=== PATIENT | male | born 2000 ===

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

== ENCOUNTER 2018-02-03 20:12 | Emergency (ER) | payer MEDICAID, OTHER ==
[2018-02-03 20:13] VITALS: BMI 20.7
[2018-02-03] MEDS ORDERED: Bismuth Subsalicylate 262 mg Chew Tab PO STA (21:04)
[2018-02-03 21:31] LABS: BASO # 0.1 K/uL (0.0-0.2); BASO % 1.4 % (0.0-2.0); EOS # 0.5 K/uL (0.0-0.7); EOS % 8.2 % (0.0-4.0); HEMOGLOBIN 14.6 g/dL (12.0-18.0); LYMPH # 1.5 K/uL (1.0-4.3); LYMPH % 25.2 % (20.0-40.0); MEAN CELL VOLUME 90.4 fL (80.0-94.0); MEAN CORPUSCULAR HEMOGLOBIN 30.1 pg (27.0-31.0); MEAN CORPUSCULAR HGB CONC 33.3 g/dL (33.0-37.0); MEAN PLATELET VOLUME 9.3 fL (7.2-11.7); MONO # 0.6 K/uL (0.0-0.8); MONO % 11.1 % (0.0-10.0); NEUT # 3.1 K/uL (1.8-7.0); NEUT % 54.1 % (50.0-75.0); NRBC % 0.1 % (0.0-2.0); RBC 4.83 Mil/uL (4.40-5.90); RED CELL DISTRIBUTION WIDTH 13.2 % (11.5-14.5); WHITE BLOOD COUNT 5.8 K/uL (4.8-10.8)
[2018-02-03 21:47] LABS: URINE BILIRUBIN NEGATIVE (NEGATIVE); URINE BLOOD NEGATIVE (NEGATIVE); URINE CLARITY Clear (Clear); URINE COLOR Yellow (YELLOW); URINE GLUCOSE (UA) NORMAL (Normal); URINE LEUKOCYTE ESTERASE NEG Leu/uL (Negative); URINE PROTEIN NEGATIVE (NEGATIVE); URINE UROBILINOGEN NORMAL mg/dL (0.2-1.0)
--- NOTE | 2018-02-03 21:54 | C.PDOC ---
History Of Present Illness 18 y/o male presents to the ED with complaints of left lower quadrant abdominal pain since Thursday. Associated with some vomiting, which resolved today, as well as diarrhea, of which he had 3 episodes today. Past surgical history is significant for appendectomy. Patient states he has been taking some unknown medicine for the stomach. Denies fever, uri symptoms, dysuria, testicular pain , or back pain. Time Seen by Provider: 02/03/18 20:46 Chief Complaint (Nursing): Abdominal Pain History Per: Patient History/Exam Limitations: no limitations Onset/Duration Of Symptoms: Days (x3) Current Symptoms Are (Timing): Still Present Location Of Pain/Discomfort: LLQ Past Medical History Reviewed: Historical Data, Nursing Documentation, Vital Signs Vital Signs: Last Vital Signs Temp 97.8 F 02/03/18 23:01 Pulse 67 02/03/18 23:01 Resp 14 02/03/18 23:01 BP 109/63 02/03/18 23:01 Pulse Ox 98 02/03/18 23:17 Surgical History: Appendectomy - [facility] Procedures LAPAROSCOP APPENDECTOMY (06/07/14) Family History: States: Unknown Family Hx - Social History Hx Tobacco Use: No Hx Alcohol Use: No Hx Substance Use: No - Immunization History Hx Tetanus Toxoid Vaccination: No Hx Influenza Vaccination: No Hx Pneumococcal Vaccination: No Review Of Systems Constitutional: Negative for: Fever, Chills Gastrointestinal: Positive for: Vomiting, Abdominal Pain, Diarrhea Physical Exam - Physical Exam Appears: Non-toxic, No Acute Distress Skin: Normal Color, Warm, Dry Head: Atraumatic, Normacephalic Eye(s): bilateral: Normal Inspection, EOMI Nose: Normal Oral Mucosa: Moist Neck: Normal ROM, Supple Chest: Symmetrical Cardiovascular: Rhythm Regular Respiratory: Normal Breath Sounds, No Rales, No Rhonchi, No Wheezing Gastrointestinal/Abdominal: Soft, Tenderness (to the left lower quadrant), No Guarding, No Rebound Back: Normal Inspection, No CVA Tenderness Extremity: Normal ROM Extremity: Bilateral: Atraumatic, Normal Color And Temperature, Normal ROM Neurological/Psych: Oriented x3, Normal Speech, Other (No focal deficits) ED Course And Treatment - Laboratory Results Result Diagrams: 02/03/18 21:24 02/03/18 21:24 O2 Sat by Pulse Oximetry: 98 (RA) Pulse Ox Interpretation: Normal Progress Note: Blood work and urine sent. Patient given 30 mg IV Toradol, 4 mg IV Zofran, and PO pepto bismol. On re-evaluation, pain persists. CT ordered. On re-evaluation, pain improved. Tolerating PO. Afebrile. No diarrhea in ED. Abdomen soft, nontender. Disposition - Disposition Disposition: HOME/ ROUTINE Disposition Time: 23:16 Condition: STABLE Additional Instructions: Follow up with PMD in 1-2 days. Return to ER if symptoms persist or worsen. Prescriptions: Bismuth Subsalicylate [Pepto Bismol] 262 mg PO QID #20 ctb Instructions: Viral Gastroenteritis, Adult (DC) Forms: [employer] (Yakut), Work Excuse - Clinical Impression Clinical Impression: Abdominal pain, Diarrhea - PA / HORSESHOER / Resident Statement MD/DO has reviewed & agrees with the documentation as recorded. - Scribe Statement The provider has reviewed the documentation as recorded by the Scribe (Sandhya Javier) All medical record entries made by the Scribe were at my direction and personally dictated by me. I have reviewed the chart and agree that the record accurately reflects my personal performance of the history, physical exam, medical decision making, and the department course for this patient. I have also personally directed, reviewed, and agree with the discharge instructions and disposition.
[2018-02-03 22:23] LABS: ALB/GLOB RATIO 1.5 (1.0-2.1); ALBUMIN 4.5 g/dL (3.5-5.0); ALT/SGPT 32 U/L (21-72); AST/SGOT 27 U/L (17-59); BLOOD UREA NITROGEN 13 mg/dL (9-20); CALCIUM 9.3 mg/dl (8.6-10.4); GFR AFRICAN-AMERICAN > 60; GFR NON-AFRICAN AMERICAN > 60; LIPASE 36 U/L (23-300)
[2018-02-03] MEDS ORDERED: Iodixanol 320 MG/ML 100 ML BOTTLE IV ONE (22:37)
[2018-02-03 23:02] VITALS: BP 109/63; PULSE 67; RESP 14; TEMP 97.8
[2018-02-03 23:17] VITALS: O2SAT 98
--- NOTE | 2018-02-04 08:38 | CT ---
Date of service: 02/03/2018 PROCEDURE: CT Abdomen and Pelvis without intravenous contrast HISTORY: Abdominal pain COMPARISON: None. TECHNIQUE: Multiple contiguous axial images were performed through the abdomen and pelvis with intravenous contrast. Subsequently, sagittal and coronal reformatted images were obtained. Radiation dose: Total exam DLP = 251 mGy-cm. This CT exam was performed using one or more of the following dose reduction techniques: Automated exposure control, adjustment of the mA and/or kV according to patient size, and/or use of iterative reconstruction technique. FINDINGS: LOWER THORAX: Unremarkable. LIVER: Unremarkable. No gross lesion or ductal dilatation. GALLBLADDER AND BILE DUCTS: Unremarkable. PANCREAS: Unremarkable. No gross lesion or ductal dilatation. SPLEEN: Unremarkable. Splenule. Caps ADRENALS: Unremarkable. No mass. KIDNEYS AND URETERS: Unremarkable. No hydronephrosis. No solid mass. Few scattered hypodensities, too small to adequately characterize; for example, in the midpole of the right kidney there is an 8 millimeter hypodensity. This may be better evaluated with renal ultrasound if clinically indicated. VASCULATURE: Unremarkable. No aortic aneurysm. BOWEL: Unremarkable. No obstruction. No gross mural thickening. Under distended descending and sigmoid colons. APPENDIX: Prior appendectomy. PERITONEUM: Unremarkable. No free fluid. No free air. LYMPH NODES: Unremarkable. No enlarged lymph nodes. BLADDER: Unremarkable. REPRODUCTIVE: Unremarkable. BONES: No acute fracture. OTHER FINDINGS: None. IMPRESSION: Negative acute. These findings were preliminarily reported at 11:01 p.m. on 02/03/[address] Rashel Robbins from [employer]
== END 2018-02-03 23:30 | disposition home or self-care (01) ==
LOC: C.ER 20:12
DX: R10.32 Left lower quadrant pain (principal); R19.7 Diarrhea, unspecified
CPT/HCPCS: 74177; 80053; 81001; 83690; 85025; 96374; 96375; 99284; J1885; J2405; Q9967

== ENCOUNTER 2018-09-25 17:16 | Emergency (ER) | payer MEDICAID ==
[2018-09-25 17:20] VITALS: BMI 23.3
[2018-09-25 17:22] VITALS: O2SAT 99
--- NOTE | 2018-09-25 17:39 | C.PDOC ---
History Of Present Illness 18 years old male with PMHx of Appendectomy (x4 years ago) presents to ED for complaints of abdominal pain that began 1 week ago. Patient reports symptoms worsen after eating and have been worsening for the last two days. Denies tomasz sea, vomiting, constipation, fever, diarrhea , or any other complaints. <Rachel Adams - Last Filed: 09/25/18 18:59> History Per: Patient History/Exam Limitations: no limitations Onset/Duration Of Symptoms: Days (7) Current Symptoms Are (Timing): Still Present Radiation Of Pain To:: None Associated Symptoms: denies: Fever, Chills, Nausea, Vomiting, Diarrhea, Constipation, Urinary Symptoms Exacerbating Factors: None Alleviating Factors: None Last Bowel Movement: Today Recent travel outside of the [place]: No <Rachel Adams - Last Filed: 09/25/18 18:59> <Mauricio Bermudez - Last Filed: 09/25/18 19:55> Time Seen by Provider: 09/25/18 17:27 Chief Complaint (Nursing): Abdominal Pain Past Medical History Reviewed: Historical Data, Nursing Documentation, Vital Signs Vital Signs: Last Vital Signs Temp 99.1 F 09/25/18 17:20 Pulse 86 09/25/18 17:20 Resp 18 09/25/18 17:20 BP 127/79 09/25/18 17:20 Pulse Ox 99 09/25/18 17:20 - Medical History PMH: No Chronic Diseases Surgical History: Appendectomy - [facility] Procedures LAPAROSCOP APPENDECTOMY (06/07/14) Family History: States: Unknown Family Hx - Social History Hx Tobacco Use: No Hx Alcohol Use: Yes Hx Substance Use: No - Immunization History Hx Tetanus Toxoid Vaccination: No Hx Influenza Vaccination: Yes Hx Pneumococcal Vaccination: No <Rachel Adams - Last Filed: 09/25/18 18:59> Vital Signs: Last Vital Signs Temp 99.1 F 09/25/18 17:20 Pulse 86 09/25/18 17:20 Resp 18 09/25/18 17:20 BP 127/79 09/25/18 17:20 Pulse Ox 99 09/25/18 19:00 - [facility] Procedures LAPAROSCOP APPENDECTOMY (06/07/14) <Mauricio Bermudez - Last Filed: 09/25/18 19:55> Review Of Systems Except As Marked, All Systems Reviewed And Found Negative. Constitutional: Negative for: Fever, Chills Gastrointestinal: Positive for: Abdominal Pain. Negative for: Nausea, Vomiting, Diarrhea, Constipation Skin: Negative for: Rash Neurological: Negative for: Weakness, Numbness <BlairkandaceRachel - Last Filed: 09/25/18 18:59> Physical Exam - Physical Exam Appears: Non-toxic, No Acute Distress Skin: Normal Color, Warm, Dry, No Rash Head: Atraumatic, Normacephalic Eye(s): bilateral: Normal Inspection, PERRL, EOMI Oral Mucosa: Moist Neck: Normal ROM, Supple Chest: Symmetrical, No Tenderness Cardiovascular: Rhythm Regular, No Murmur Respiratory: Normal Breath Sounds, No Rales, No Rhonchi, No Wheezing Gastrointestinal/Abdominal: Soft, Tenderness (RUQ), Guarding, No Rebound Extremity: Normal ROM Extremity: Bilateral: Atraumatic, Normal Color And Temperature, Normal ROM Pulses: Left Radial: Normal, Right Radial: Normal Neurological/Psych: Oriented x3, Normal Speech Gait: Steady <AngieRachel - Last Filed: 09/25/18 18:59> ED Course And Treatment - Laboratory Results Result Diagrams: 09/25/18 18:14 09/25/18 18:14 O2 Sat by Pulse Oximetry: 99 (RA) Pulse Ox Interpretation: Normal Progress Note: Adminsitered IV Fluids, Protonix, and Zofran. Ordered blood work and Abdomen US. <AngieRachel - Last Filed: 09/25/18 18:59> - Laboratory Results Result Diagrams: 09/25/18 18:14 09/25/18 18:14 Lab Results: Total Bilirubin 0.5 mg/dL (0.2-1.3) 09/25/18 18:14 AST 25 U/L (17-59) 09/25/18 18:14 ALT 52 U/L (21-72) 09/25/18 18:14 Alkaline Phosphatase 87 U/L (38-126) 09/25/18 18:14 Total Protein 7.2 g/dL (6.3-8.3) 09/25/18 18:14 Albumin 4.5 g/dL (3.5-5.0) 09/25/18 18:14 Globulin 2.6 gm/dL (2.2-3.9) 09/25/18 18:14 Albumin/Globulin Ratio 1.7 (1.0-2.1) 09/25/18 18:14 Lipase 42 U/L (23-300) 09/25/18 18:14 Urine Color Yellow (YELLOW) 09/25/18 19:40 Urine Clarity Clear (Clear) 09/25/18 19:40 Urine pH 7.0 (5.0-8.0) 09/25/18 19:40 Ur Specific [place] 1.025 (1.003-1.030) 09/25/18 19:40 Urine Protein Negative mg/dL (NEGATIVE) 09/25/18 19:40 Urine Glucose (UA) Normal mg/dL (Normal) 09/25/18 19:40 Urine Ketones Negative mg/dL (NEGATIVE) 09/25/18 19:40 Urine Blood Negative (NEGATIVE) 09/25/18 19:40 Urine Nitrate Negative (NEGATIVE) 09/25/18 19:40 Urine Bilirubin Negative (NEGATIVE) 09/25/18 19:40 Urine Urobilinogen 2.0 mg/dL (0.2-1.0) 09/25/18 19:40 Ur Leukocyte Esterase Neg Jean/uL (Negative) 09/25/18 19:40 Urine WBC (Auto) 1 /hpf (0-5) 09/25/18 19:40 Urine RBC (Auto) 2 /hpf (0-3) 09/25/18 19:40 Ur Squamous Epith Cells < 1 /hpf (0-5) 09/25/18 19:40 Lab Interpretation: Normal Pulse Ox Interpretation: Normal - Radiology CXR: Interpreted by Me CXR Interpretation: Yes: No Acute Disease - Other Rad abd x 2 X-Ray: Interpreted by Me (+FOS) Reevaluation Time: 19:55 Reassessment Condition: Improved <Mauricio Bermudez - Last Filed: 09/25/18 19:55> Medical Decision Making Medical Decision Making: abd US neg <Mauricio Bermudez - Last Filed: 09/25/18 19:55> Disposition - Disposition Disposition Time: 19:00 <Rachel Adams - Last Filed: 09/25/18 18:59> Doctor Will See Patient In The: Office Counseled Patient/Family Regarding: Studies Performed, Diagnosis <Mauricio Bermudez - Last Filed: 09/25/18 19:55> - Disposition Disposition: HOME/ ROUTINE Condition: GOOD Forms: [facility] (Bengali) - Clinical Impression Clinical Impression: Abdominal colic - PA / [employer] / Resident Statement MD/DO has reviewed & agrees with the documentation as recorded. - Scribe Statement The provider has reviewed the documentation as recorded by the Scribe Russ Massey All medical record entries made by the Scribe were at my direction and personally dictated by me. I have reviewed the chart and agree that the record accurately reflects my personal performance of the history, physical exam, medical decision making, and the department course for this patient. I have also personally directed, reviewed, and agree with the discharge instructions and disposition. <Rachel Adams - Last Filed: 09/25/18 18:59> Physician Patient Turnover Patient Signed Over To: Mauricio Bermudez Handoff Comments: Pending RUQ US and re-eval <Rachel Adams - Last Filed: 09/25/18 18:59>
[2018-09-25] MEDS ORDERED: Sodium Chloride 0.9% 1,000 ML IV STA (17:54)
[2018-09-25] MEDS ORDERED: Sodium Chloride 0.9% 1,000 ML ONE (18:06)
[2018-09-25 18:19] LABS: BASO # 0.1 K/uL (0.0-0.2); BASO % 0.9 % (0.0-2.0); EOS # 0.3 K/uL (0.0-0.7); EOS % 4.4 % (0.0-4.0); HEMOGLOBIN 15.5 g/dL (12.0-18.0); LYMPH # 1.7 K/uL (1.0-4.3); LYMPH % 24.3 % (20.0-40.0); MEAN CELL VOLUME 90.8 fL (80.0-94.0); MEAN CORPUSCULAR HEMOGLOBIN 30.7 pg (27.0-31.0); MEAN CORPUSCULAR HGB CONC 33.8 g/dL (33.0-37.0); MEAN PLATELET VOLUME 9.4 fL (7.2-11.7); MONO # 0.8 K/uL (0.0-0.8); MONO % 11.6 % (0.0-10.0); NEUT # 4.2 K/uL (1.8-7.0); NEUT % 58.8 % (50.0-75.0); NRBC % 0.1 % (0.0-2.0); RBC 5.07 Mil/uL (4.40-5.90); RED CELL DISTRIBUTION WIDTH 13.2 % (11.5-14.5); WHITE BLOOD COUNT 7.1 K/uL (4.8-10.8)
[2018-09-25 18:30] LABS: ALB/GLOB RATIO 1.7 (1.0-2.1); ALBUMIN 4.5 g/dL (3.5-5.0); ALT/SGPT 52 U/L (21-72); AST/SGOT 25 U/L (17-59); BLOOD UREA NITROGEN 17 mg/dL (9-20); CALCIUM 8.7 mg/dl (8.6-10.4); GFR NON-AFRICAN AMERICAN > 60; LIPASE 42 U/L (23-300)
[2018-09-25 19:46] LABS: SQUAMOUS EPITHIAL < 1 /hpf (0-5); URINE BILIRUBIN NEGATIVE (NEGATIVE); URINE BLOOD NEGATIVE (NEGATIVE); URINE CLARITY Clear (Clear); URINE COLOR Yellow (YELLOW); URINE GLUCOSE (UA) NORMAL (Normal); URINE LEUKOCYTE ESTERASE NEG Leu/uL (Negative); URINE PROTEIN NEGATIVE (NEGATIVE)
[2018-09-25] MEDS ORDERED: Magnesium Citrate Oral SOL (300 ml) PO ONE (19:57)
[2018-09-25] MEDS ORDERED: Magnesium Citrate Oral SOL (300 ml) ONE (20:03)
[2018-09-25 20:04] VITALS: BP 116/70; PULSE 79; RESP 16; TEMP 98.4
--- NOTE | 2018-09-26 12:10 | US ---
Date of service: 09/25/2018 HISTORY: RUQ /epigastric abd pain COMPARISON: Comparison is made to the previous CT of the abdomen and pelvis dated 02/03/2018. TECHNIQUE: Sonographic evaluation of the right upper quadrant of the abdomen. FINDINGS: LIVER: Measures 15.7 cm in length. Normal echogenicity of the liver parenchyma. No mass. No intrahepatic bile duct dilatation. GALLBLADDER: Unremarkable. No gallstones. COMMON BILE DUCT: Measures 3 mm. No stones. No dilatation. PANCREAS: Unremarkable as visualized. No mass. No ductal dilatation. RIGHT KIDNEY: Measures 10.2 x 4.9 x 5.1 cm in length. Normal echogenicity. No calculus, mass, or hydronephrosis. AORTA: No aneurysmal dilatation. IVC: Unremarkable. OTHER FINDINGS: None . IMPRESSION: No ultrasound evidence of acute pathology at the right upper quadrant. Preliminary report was submitted by [facility] Radiology contains concordant findings.
--- NOTE | 2018-09-26 12:38 | RAD ---
Date of service: 09/25/2018 PROCEDURE: Radiographs of the chest and abdomen (obstructive series) HISTORY: epigastric pain COMPARISON: No prior. TECHNIQUE: AP radiograph of the chest, with upright and supine radiographs of the abdomen. 3 views obtained. FINDINGS: CHEST: Lungs: Clear. Cardiovascular: Normal size heart. No pulmonary vascular congestion. No aortic atherosclerotic calcification present Pleura: No pleural fluid. No pneumothorax. Other findings: None. ABDOMEN AND PELVIS: Bowel: Unremarkable bowel gas pattern. No evidence of mechanical obstruction. Free air: None. Bones: Unremarkable. Other findings: None. IMPRESSION: Mild constipation otherwise unremarkable radiographs of chest and abdomen. No evidence of mechanical bowel obstruction.
== END 2018-09-25 20:20 | disposition home or self-care (01) ==
LOC: C.ER 17:16
DX: R10.84 Generalized abdominal pain (principal)
CPT/HCPCS: 74022; 76705; 80053; 81001; 83690; 85025; 96361; 96374; 96375; 99284; C9113; J2405; J7030

== ENCOUNTER 2018-10-11 11:46 | Emergency (ER) | payer OTHER, MEDICAID ==
[2018-10-11 12:00] VITALS: BMI 23.1
[2018-10-11 12:01] VITALS: BP 123/76; PULSE 85; TEMP 99.3; O2SAT 98
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
[2018-10-11 13:07] VITALS: RESP 18
== END 2018-10-11 13:07 | disposition home or self-care (01) ==
LOC: C.ER 11:46
DX: S80.11XA Contusion of right lower leg, initial encounter (principal); V47.6XXA Car passenger injured in collision with fixed or stationary object in traffic accident, initial encounter